=== PATIENT | male | born 1955 ===

== ENCOUNTER → 2024-07-16 11:10 | Outpatient (REF) | payer BC, MEDICARE, SELFPAY | LOC: HWRCS 11:10 | PROVIDERS: ATTENDING PHYSICIAN Internal Medicine Interventional Cardiology; FAMILY PHYSICIAN Internal Medicine | DX: R07.89 Other chest pain (principal); R06.09 Other forms of dyspnea; I10 Essential (primary) hypertension; E78.2 Mixed hyperlipidemia; R73.09 Other abnormal glucose; I25.10 Atherosclerotic heart disease of native coronary artery without angina pectoris | CPT/HCPCS: 78452; 93017; A9500 ==

== ENCOUNTER → 2024-08-13 13:49 | Outpatient (REF) | payer MEDICARE, BC, SELFPAY | LOC: HWRCS 13:49 | PROVIDERS: ATTENDING PHYSICIAN Internal Medicine Interventional Cardiology; FAMILY PHYSICIAN Internal Medicine | DX: R07.89 Other chest pain (principal); R06.09 Other forms of dyspnea; I10 Essential (primary) hypertension; E78.2 Mixed hyperlipidemia; R73.09 Other abnormal glucose; I25.10 Atherosclerotic heart disease of native coronary artery without angina pectoris | CPT/HCPCS: 93306 ==

== ENCOUNTER → 2024-08-18 09:13 | Outpatient (REF) | payer MEDICARE, BC, SELFPAY | LOC: HWRAD 09:13 | PROVIDERS: ATTENDING PHYSICIAN Family Medicine | DX: N40.1 Benign prostatic hyperplasia with lower urinary tract symptoms (principal); R35.0 Frequency of micturition | CPT/HCPCS: 76857 ==

== ENCOUNTER → 2024-08-27 09:01 | Outpatient (REF) | payer MEDICARE, BC, SELFPAY | LOC: RSP 09:01 | PROVIDERS: ATTENDING PHYSICIAN Family Medicine | DX: J45.909 Unspecified asthma, uncomplicated (principal) | CPT/HCPCS: 94060 ==